=== PATIENT | female | born 1975 | race African-American/Black ===

== ENCOUNTER → 2018-01-04 | Outpatient (CLI) | payer MEDICAID | LOC: MC.RAD 07:00 | DX: Z12.31 Encounter for screening mammogram for malignant neoplasm of breast (principal); Z98.890 Other specified postprocedural states ==

== ENCOUNTER 2018-01-20 13:47 | Emergency (ER) | payer MEDICAID ==
[~2018-01-20] VITALS: Ht 167.6 cm; Wt 69.5 kg
[2018-01-20 13:53] VITALS: TEMP 98.2
[2018-01-20] MEDS ORDERED: ZYRTEC 10MG10 MG PO (14:00)
[2018-01-20 16:10] LABS: COLLECTION METHOD CLEAN CATCH
[2018-01-20 16:13] LABS: BASO # 0.1 (0.0-0.2); BASO % 1.1 % (0.0-2.0); EOS % 0.9 % (0-4.0); GRAN # 2.5 (1.4-6.5); GRAN % 56.5 % (42.2-75.2); HEMATOCRIT 37.8 % (37.0-47.0); HEMOGLOBIN 12.7 g/dl (12.5-16.0); LYMPH # 1.3 (1.2-3.4); LYMPH % 30.1 % (20.0-51.0); MEAN CELL VOLUME 83 fl (80.0-100.0); MEAN CORPUSCULAR HEMOGLOBIN 28 pg (27.0-31.0); MEAN CORPUSCULAR HGB CONC 34 g/dl (33.0-37.0); MEAN PLATELET VOLUME 11.3 fl (7.4-10.4); MONO # 0.5 (0.1-0.6); MONO % 11.2 % (1.7-9.3); PLATELET COUNT 251 K/mm3 (130-400); RED BLOOD COUNT 4.57 M/mm3 (4.10-5.30); REDCELL DISTRIBUTION WIDTH-CV 14.7 % (11.5-14.5)
[2018-01-20 16:27] LABS: MUCOUS Present /lpf; PH 7 (5-8); URINE APPEARANCE Hazy; URINE BACTERIA Rare /hpf; URINE BILIRUBIN Negative (NEGATIVE); URINE BLOOD Negative (NEGATIVE); URINE COLOR Yellow; URINE GLUCOSE Negative (NEGATIVE); URINE KETONE Negative (NEGATIVE); URINE LEUKOCYTE ESTERASE Negative (NEGATIVE); URINE NITRATE Negative (NEGATIVE); URINE PROTEIN(semi-quant) Negative (NEGATIVE); URINE RBC 0-2 /hpf; URINE UROBILINOGEN Negative (NEGATIVE)
[2018-01-20 16:28] LABS: ALANINE AMINOTRANSFERASE 25 U/L (9-52); ALBUMIN 3.9 gm/dL (3.5-5.0); ALKALINE PHOSPHATASE 49 U/L (50-136); ANION GAP 6 mmol/L (7-16); AST,SGOT 23 U/L (15-37); BILIRUBIN,TOTAL 0.3 mg/dL (0.0-1.0); BLOOD UREA NITROGEN 5 mg/dL (7-17); C-REACTIVE PROTEIN < 0.5 mg/dL (0.0-0.9); CALCIUM 8.8 mg/dL (8.4-10.2); CARBON DIOXIDE 28 mmol/L (22-30); CHLORIDE 106 mmol/L (98-107); CREATININE, serum 0.69 mg/dL (0.52-1.25); GLUCOSE 88 mg/dL (74-106); POTASSIUM 3.7 mmol/L (3.4-5.0); SODIUM 140 mmol/L (137-145); TOTAL PROTEIN 7.6 gm/dL (6.4-8.2)
[2018-01-20 16:38] LABS: TROPONIN-I < 0.012 ng/mL (0.000-0.034)
[2018-01-20 17:47] VITALS: BP 134/82; PULSE 86
== END 2018-01-20 17:48 | disposition home or self-care (01) ==
LOC: COL.ER 13:47
PROVIDERS: Emergency Medicine
DX: N28.1 Cyst of kidney, acquired (principal); M54.9 Dorsalgia, unspecified
CPT/HCPCS: Q9967

== ENCOUNTER 2018-12-10 10:47 | Emergency (ER) | payer MEDICAID ==
[~2018-12-10] VITALS: Ht 167.6 cm; Wt 69.1 kg
[~2018-12-10 10:47] MED LIST: ZYRTEC 10MG10 MG PO
[2018-12-10 10:53] VITALS: BP 126/76; TEMP 98.2
[2018-12-10] MEDS ORDERED: PRISTIQ 50 MG T50 MG PO (11:02)
[2018-12-10] MEDS ORDERED: SINGULAIR 110 MG/TAB PO (11:02)
[2018-12-10 12:12] VITALS: PULSE 72
== END 2018-12-10 12:13 | disposition home or self-care (01) ==
LOC: COL.ER 10:47
DX: L98.9 Disorder of the skin and subcutaneous tissue, unspecified (principal); Z98.51 Tubal ligation status

== ENCOUNTER → 2019-03-15 | Outpatient (CLI) | payer MEDICAID ==
[~2019-03-15] MED LIST changes: +PRISTIQ 50 MG T50 MG PO; +SINGULAIR 110 MG/TAB PO
== END ==
LOC: MC.RAD 03-08 13:45
DX: Z12.31 Encounter for screening mammogram for malignant neoplasm of breast (principal)

== ENCOUNTER → 2020-04-15 | Outpatient (CLI) | payer MEDICAID | LOC: MC.RAD 06:57 | DX: Z12.31 Encounter for screening mammogram for malignant neoplasm of breast (principal) ==

== ENCOUNTER → 2021-07-14 | Outpatient (CLI) | payer MEDICAID | LOC: MC.RAD 07:00 | DX: Z12.31 Encounter for screening mammogram for malignant neoplasm of breast (principal) ==

== ENCOUNTER → 2023-10-26 | Outpatient (CLI) | payer MEDICAID | LOC: MC.RAD 12:35 | DX: Z12.31 Encounter for screening mammogram for malignant neoplasm of breast (principal) ==